=== PATIENT | male | born 1965 | race Caucasian/White ===

== ENCOUNTER 2016-08-07 08:18 | Emergency (ER) | payer MEDICARE ==
[~2016-08-07 08:18] MED LIST: *UNABLE2; GLUCPH PO; GOODY'S EX-STR1 EAC1 OR; HUMALOGPEN SC; HYDROCHLOROT12.5 MG PO; Humalog SC; LEVEMFLXPN SC; LEVEMIR SC; LIPITOR40 PO; LYRICA200 MG PO; METHOC500B PO; MOBIC15 MG PO; MULTIVIT/MIN PO; NOVOPENMIX SC; PCET PO; PRIN5 PO; PRISTIQ50 MG PO; PROTONIX PO; PROZ10 PO; STEROID PO
[2016-08-07 09:35] LABS: BASOPHILS 0.2 %; BASOPHILS ABSOLUTE 0.01 10/3/uL (0.0-0.16); EOSINOPHILS ABSOLUTE 0.06 10/3/uL (0.0-0.53); HEMATOCRIT 35.2 % (40.0-51.0); HEMOGLOBIN 12.3 g/dL (13.6-17.8); IMMATURE GRANULOCYTES 0.3 %; IMMATURE GRANULOCYTES ABSOLUTE 0.02 10/3/uL (0.0-0.11); LYMPHOCYTES 24.1 %; LYMPHOCYTES ABSOLUTE 1.38 10/3/uL (0.67-4.30); MEAN CORPUS HGB CONC 34.9 g/dL (32.0-36.0); MEAN CORPUSCULAR HEMOGLOB 29.3 pg (26.0-34.0); MEAN PLATELET VOLUME 9.9 fL (9.2-13.0); MONOCYTES 7.2 %; MONOCYTES ABSOLUTE 0.41 10/3/uL (0.21-1.20); NEUTROPHILS 67.2 %; NEUTROPHILS ABSOLUTE 3.84 10/3/uL (2.02-8.40); PLATELET COUNT 256 10/3/uL (150-400); RBC DISTRIBUTION WIDTH 14.6 % (12.0-16.0); WHITE BLOOD CELLS 5.7 10/3/uL (4.5-10.5)
[2016-08-07 09:36] LABS: MANUAL DIFF NO %; MEAN CORPUSCULAR VOLUME 83.8 fL (80-100)
[2016-08-07 09:43] LABS: INTERNATIONAL NORMAL RATI 1.1 UNITS (-); PARTIAL THROMBO TIME 30.7 SEC (22.5-37.2); PROTIME (NOT ORD) 14.3 SEC (12.0-14.5)
[2016-08-07 09:47] LABS: D-DIMER QUANTITATIVE < 0.27 ug/mLFEU (< 0.50)
[2016-08-07 09:52] LABS: CALCIUM, SERUM 9.2 MG/DL (8.5-10.4); CHEST PAIN PROFILE TAT 0 Hrs 21 Mins; CO2 (CARBON DIOXIDE) 25 MMOL/L (24-34); CREATININE 0.96 MG/DL (0.70-1.30); GFR AFRICAN AMERICAN 106 ML/MIN (>=60); GFR NON AFRICAN AMERICAN 91 ML/MIN (>=60); TROPONIN I <0.02 NG/ML (<0.05)
[2016-08-07 09:53] LABS: BUN (BLOOD UREA NITROGEN) 17 MG/DL (6-23); CHLORIDE, SERUM 106 MMOL/L (96-112); GLUCOSE, SERUM 278 MG/DL (60-99); SODIUM, SERUM 137 MMOL/L (135-148)
== END 2016-08-07 12:38 | disposition home or self-care (01) ==
LOC: ER 08:18
PROVIDERS: Nurse Practitioner Family
DX: R07.9 Chest pain, unspecified (principal); I10 Essential (primary) hypertension; F32.9 Major depressive disorder, single episode, unspecified; E11.40 Type 2 diabetes mellitus with diabetic neuropathy, unspecified; E78.5 Hyperlipidemia, unspecified; F17.200 Nicotine dependence, unspecified, uncomplicated; Z95.5 Presence of coronary angioplasty implant and graft; Z76.5 Malingerer [conscious simulation]; Z88.5 Allergy status to narcotic agent; Z79.4 Long term (current) use of insulin; Z79.899 Other long term (current) drug therapy
CPT/HCPCS: 71010; 80048; 83690; 83735; 83880; 84484; 85025; 85379; 85610; 85730; 93005; 96374; 99285; A9270-GY; J1885